=== PATIENT | female | born 1995 | race Hispanic/Latino ===

== ENCOUNTER 2016-09-22 09:27 | Emergency (ER) | payer OTHER, SELFPAY ==
[2016-09-22] MEDS ORDERED: Dexamethasone 4 mg/ml Vial ONE (09:49)
[2016-09-22] MEDS ORDERED: AMOXicillin 250 MG CAP ONE (09:49)
== END 2016-09-22 09:50 | disposition home or self-care (01) ==
LOC: BURERS 09:27
DX: J02.9 Acute pharyngitis, unspecified (principal)
CPT/HCPCS: 99282; J1100

== ENCOUNTER 2017-12-02 20:54 | Emergency (ER) | payer OTHER, SELFPAY ==
[2017-12-02] MEDS ORDERED: AMOXicillin 250 MG CAP ONE (21:15)
[2017-12-02] MEDS ORDERED: Acetaminophen 500 MG TAB ONE (21:15)
[2017-12-02 21:30] LABS: Clarity Slightly Cloudy (Clear); Leukocyte Small (Negative); Nitrite Negative (Negative); Protein, Urine (Dipstick) 100 mg/dL (Neg-Trace); Specific Gravity, Urine 1.025 (1.005-1.030)
[2017-12-02 21:31] LABS: Bilirubin Small (Negative); Blood, Urine Trace (Negative); Glucose, Urine (Dipstick) Negative (Negative); Urobilinogen 0.2 mg/dL (0.2-1.0)
[2017-12-02 21:36] LABS: Bacteria/HPF 2+ HPF (None Seen)
== END 2017-12-02 21:50 | disposition home or self-care (01) ==
LOC: BURERS 20:54
DX: O91.22 Nonpurulent mastitis associated with the puerperium (principal); O86.20 Urinary tract infection following delivery, unspecified
CPT/HCPCS: 81003; 81015; 87086; 99283